=== PATIENT | female | born 1975 | race Caucasian/White ===

== ENCOUNTER 2023-08-12 13:37 | Outpatient (REF) | payer MEDICARE, MEDICAID, SELFPAY | END 2023-08-12 13:38 | disposition home or self-care (01) | LOC: CF 13:37 | DX: Z13.89 Encounter for screening for other disorder (principal) ==

== ENCOUNTER 2023-08-14 10:53 | Outpatient (AMB) | payer MEDICARE, MEDICAID, SELFPAY ==
--- NOTE | 2023-08-14 10:59 | A.SPINEOV_ITS ---
Intake Intake Visit Reasons: Back pain Intake Note: Ms. Pimentel is here today c/o neck and shoulder pain. 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 She is a pleasant 48-year-old female who comes in today with a chief complaint of longstanding shoulder / neck pain. She reports a pertinent medical history of a diagnosis of multiple sclerosis and states she has regular routine imaging of both her cervical and lumbar spine. She reports she has not had any significant changes in her shoulder/neck pain for the past few years, however likes to have surfaces established with neurosurgery/spine professionals in order to monitor her multiple sclerosis progression. She reports she does not take many medications to help alleviate her pain, but does have active prescriptions for baclofen, gabapentin, and lorazepam. She has been to physical therapy multiple times in the past and does feel as though it has been beneficial for her. PMH: Tubal ligation in 2004, multiple sclerosis. Social hx: Patient does not smoke, reports no substance use. Medications: Baclofen, gabapentin, lorazepam. Allergies: Morphine, tramadol, Macrobid. Physical exam: The patient has 5/5 strength in her upper and lower extremities. She has some sensational deficits in her bilateral lower extremities, but states this is normal. The rest of her sensation is normal. Her right patellar reflexes 1+ hypoactive, the rest of her reflexes are 2+ intact. She is able to ambulate well and rises from a seated position without difficulty. (-) Coy's, (-) clonus, (-) straight leg raise bilaterally. Imaging review: MRI of the cervical, thoracic, and lumbar spine completed at [place] were reviewed during this visit. There is a slight disc bulge at C5-6 causing mild right-sided foraminal stenosis. She does have multiple signal change lesions consistent with multiple sclerosis throughout her cervical /thoracic/lumbar spine. The rest of her imaging is unremarkable from a neurosurgical standpoint. Impression: Any is a pleasant 48-year-old female who comes in today with a chief complaint of longstanding neck and shoulder pain. She has a past medical history that is significant for a diagnosis of multiple sclerosis. She reports no significant change in her symptoms over the course of the last few years. She has no right-sided upper extremity symptoms, which would be the only real treatable pathology that can be identified on her MRI imaging. At this point I encouraged her to continue to follow-up with her neurologist and primary care physician and did not recommend any neurosurgical interventions. Thank you for allowing us to care for your patient. The total time spent with this visit with this patient was 45 minutes reviewing history, physical exam, MRI imaging review, and implementation of treatment plan or further diagnostic testing Tobi Morales MD,PhD [facility] Coding Level of Care Code New Pt Level 4 (14290) Global (57131) Diagnoses Multiple sclerosis G35
== END 2023-08-14 12:26 | disposition home or self-care (01) ==
PROVIDERS: PCP Family Medicine; Referring Provider Family Medicine; Visit Provider Physician Assistant
DX: G35 Multiple sclerosis (principal)
CPT/HCPCS: 99204

== ENCOUNTER → 2023-08-14 10:53 | Outpatient (BNVA) | payer MEDICARE, MEDICAID, SELFPAY | PROVIDERS: PCP Family Medicine; Visit Provider Physician Assistant | DX: G35 Multiple sclerosis (principal) | CPT/HCPCS: 99202 ==